=== PATIENT | male | born 1960 | race African-American/Black ===

== ENCOUNTER 2022-08-15 10:40 | Inpatient (IN) | payer MEDICARE, MEDICAID ==
[~2022-08-15] VITALS: Ht 175.3 cm; Wt 49.0 kg
[2022-08-15] MEDS ORDERED: SODIUM CHLORIDE 0.9% 1,000 ML IV ONE (11:15)
[2022-08-15 13:12] LABS: BASOPHILS % 0.8 % (0.0-2.0); EOSINOPHILS % 4.8 % (0.0-5.0); HEMATOCRIT. 30.6 % (42.0-52.0); HEMOGLOBIN. 10.2 g/dL (14.0-18.0); LYMPHOCYTES % 26.9 % (20.0-50.0); MEAN CORPUSCULAR HEMOGLOBIN 29.6 pg (28.0-32.0); MEAN CORPUSCULAR VOLUME 88.6 fL (80.0-94.0); MEAN PLATELET VOLUME 8.8 fl (7.4-10.4); MONOCYTES % 12.6 % (2.0-8.0); NEUTROPHILS % 54.9 % (40.0-76.0); PLATELET 181 x1000/uL (130-400); RED BLOOD CELL COUNT 3.46 mill/uL (4.7-6.1); RED CELL DISTRIBUTION WIDTH 17.8 % (11.6-14.6)
[2022-08-15 13:21] LABS: CHLORIDE 102 mEq/L (98-107); INR 1.3; PROTHROMBIN TIME 13.5 sec (9.6-11.0)
[2022-08-15] MEDS ORDERED: PIPERACILLIN/TAZ 3.375G PREMIX 50 ML IV SCH (14:00)
[2022-08-15] MEDS ORDERED: POTASSIUM CHLORIDE 20MEQ TABLET SR PO SCH (14:00)
[2022-08-15] MEDS ORDERED: SODIUM CHLORIDE 0.9% 1000ML BAG (SEPSIS BOLUS) IV SCH (14:00)
[2022-08-15] MEDS ORDERED: ENOXAPARIN 40MG/0.4ML SYR SUBCUT ONE (17:15)
[2022-08-15] MEDS ORDERED: FUROSEMIDE 40MG/4ML VIAL IVP NR ×2 (17:15→22:30)
[2022-08-15] MEDS ORDERED: GUAIFENESIN 200MG/10ML SUGAR FREE UDC PO PRN ×2 (17:15→22:30)
[2022-08-15] MEDS ORDERED: CEFTRIAXONE 1 G PREMIX 50 ML IV SCH (17:15)
[2022-08-15] MEDS ORDERED: IPRATROPIUM/ALBUTEROL 0.5-3(2.5)MG/3ML NEB HHN PRN (17:15)
[2022-08-15] MEDS ORDERED: ACETAMINOPHEN 325MG TABLET PO PRN ×3 (17:15→22:30)
[2022-08-15] MEDS ORDERED: KCL 10MEQ/50ML PREMIX 50 ML IV NR (18:00)
[2022-08-15] MEDS ORDERED: ENOXAPARIN 30MG/0.3ML SYR SUBCUT SCH (18:00)
[2022-08-15] MEDS ORDERED: POTASSIUM CHLORIDE 20MEQ TABLET SR PO NR ×2 (18:00→22:30)
[2022-08-15] MEDS ORDERED: PANTOPRAZOLE 40MG DR TABLET PO SCH (18:00)
[2022-08-15 21:35] LABS: ETHANOL BLOOD < 10 mg/dL; TOTAL IRON BINDING CAPACITY 125 ug/dL (250-450)
[2022-08-15 21:55] LABS: HEPATITIS B SURFACE ANTIGEN NEGATIVE
[2022-08-15 21:59] LABS: VITAMIN B12 SERUM 1447 pg/mL (211-911)
[2022-08-15 22:15] LABS: FERRITIN 733 ng/mL (22-322)
[2022-08-15] MEDS ORDERED: CEFTRIAXONE 1 G PREMIX 50 ML IV NR (22:30)
[2022-08-15] MEDS ORDERED: PIPERACILLIN/TAZ 3.375G PREMIX 50 ML IV NR (22:30)
[2022-08-16] VITALS: BP 130/90
[2022-08-16 00:09] LABS: CLARITY URINE CLEAR (CLEAR); COLOR URINE YELLOW (YELLOW); KETONES URINE NEGATIVE (NEGATIVE); LEUKOCYTE ESTERASE URINE 1+ (NEGATIVE); NITRITE URINE NEGATIVE (NEGATIVE); OCCULT BLOOD URINE NEGATIVE (NEGATIVE); PROTEIN URINE NEGATIVE (NEGATIVE); SPECIFIC GRAVITY URINE 1.012 (1.005-1.030); UROBILINOGEN URINE 0.2 E.U./dL (0.2-1.0)
[2022-08-16] MEDS ORDERED: ALBUTEROL (0.083%) 2.5MG/3ML NEB HHN PRN (00:30)
[2022-08-16] MEDS ORDERED: IPRATROPIUM BROMIDE (0.02%) 0.5MG/2.5ML NEB HHN PRN (00:30)
[2022-08-16 00:43] LABS: *AMPHETAMINES SCREEN URINE NEGATIVE (NEGATIVE); *BARBITURATES SCREEN URINE NEGATIVE (NEGATIVE); *BENZODIAZEPINES SCREEN URINE NEGATIVE (NEGATIVE); *COCAINE SCREEN URINE NEGATIVE (NEGATIVE); CANNABINOID URINE SCREEN PRESUMTIVE POSITIVE (NEGATIVE); METHADONE URINE SCREEN NEGATIVE (NEGATIVE); OPIATES URINE SCREEN NEGATIVE (NEGATIVE); PHENCYCLIDINE URINE SCREEN NEGATIVE (NEGATIVE)
[2022-08-16 04:00] VITALS: BP 102/67
[2022-08-16 05:45] LABS: BASOPHILS % 0.6 % (0.0-2.0); EOSINOPHILS % 4.5 % (0.0-5.0); HEMATOCRIT. 28.6 % (42.0-52.0); HEMOGLOBIN. 9.7 g/dL (14.0-18.0); LYMPHOCYTES % 19.1 % (20.0-50.0); MEAN CORPUSCULAR HEMOGLOBIN 29.8 pg (28.0-32.0); MEAN CORPUSCULAR VOLUME 88.4 fL (80.0-94.0); MEAN PLATELET VOLUME 9.5 fl (7.4-10.4); MONOCYTES % 13.9 % (2.0-8.0); NEUTROPHILS % 61.9 % (40.0-76.0); PLATELET 163 x1000/uL (130-400); RED BLOOD CELL COUNT 3.23 mill/uL (4.7-6.1); RED CELL DISTRIBUTION WIDTH 17.6 % (11.6-14.6)
[2022-08-16 05:57] LABS: D-DIMER 19.74 mg/L FEU (<0.50); PARTIAL THROMBOPLASTIN TIME 33.7 sec (23.4-31.0)
[2022-08-16 07:39] LABS: CHLORIDE 108 mEq/L (98-107)
[2022-08-16 07:54] LABS: CREATINE KINASE 50 IU/L (39-308); HDL CHOLESTEROL 25 mg/dL (40-59); LDL CHOLESTEROL 119 mg/dL (5-100); PHOSPHORUS 3.7 mg/dL (2.5-4.9); T4 FREE 1.16 ng/dL (0.76-1.46)
[2022-08-16 08:00] VITALS: BP 117/78
[2022-08-16] MEDS ORDERED: POTASSIUM CHLORIDE 20MEQ TABLET SR PO NR (08:15)
[2022-08-16] MEDS: ENOXAPARIN 30MG/0.3ML SYR SUBCUT SCH (08:53)
[2022-08-16] MEDS: PANTOPRAZOLE 40MG DR TABLET PO SCH (08:53)
[2022-08-16] MEDS ORDERED: MAGNESIUM 2 G PREMIX 50 ML IV NR (09:30)
[2022-08-16] MEDS ORDERED: IOHEXOL-350 100 ML BOTTLE ONE (09:45)
[2022-08-16 12:00] VITALS: BP 131/87
[2022-08-16] MEDS ORDERED: CEFTRIAXONE 1,000 MG in DEXTROSE 5% WATER 50 ML IV SCH (14:00)
[2022-08-16] MEDS ORDERED: ALBUMIN HUMAN 25GM/100ML (25%) IV SCH (15:00)
[2022-08-16 16:00] VITALS: BP 123/80
[2022-08-16] MEDS ORDERED: LACTULOSE 20G/30ML UDC PO NR (16:00)
[2022-08-16] MEDS: FUROSEMIDE 40MG TABLET PO SCH (17:07)
[2022-08-16 20:00] VITALS: BP 102/65
[2022-08-16] MEDS: ACETAMINOPHEN 325MG TABLET PO PRN (22:02)
[2022-08-16] MEDS: CEFTRIAXONE 1,000 MG in DEXTROSE 5% WATER 50 ML IV SCH (22:02)
[2022-08-17] VITALS: BP 97/55
[2022-08-17 04:00] VITALS: BP 101/65
[2022-08-17] MEDS: PANTOPRAZOLE 40MG DR TABLET PO SCH (05:58)
[2022-08-17 06:37] LABS: CHLORIDE 108 mEq/L (98-107)
[2022-08-17 06:43] LABS: HEMATOCRIT. 24.5 % (42.0-52.0); HEMOGLOBIN. 8.5 g/dL (14.0-18.0); MEAN CORPUSCULAR HEMOGLOBIN 30.3 pg (28.0-32.0); MEAN CORPUSCULAR VOLUME 87.3 fL (80.0-94.0); MEAN PLATELET VOLUME 9.6 fl (7.4-10.4); PLATELET 140 x1000/uL (130-400)
[2022-08-17 06:46] LABS: PHOSPHORUS 3.6 mg/dL (2.5-4.9)
[2022-08-17 08:00] VITALS: BP 96/60
[2022-08-17] MEDS: LACTULOSE 20G/30ML UDC PO SCH (08:13)
[2022-08-17] MEDS: SPIRONOLACTONE 50MG TABLET PO SCH (08:14)
[2022-08-17] MEDS: FUROSEMIDE 40MG TABLET PO SCH (08:14)
[2022-08-17] MEDS: ENOXAPARIN 30MG/0.3ML SYR SUBCUT SCH (08:14)
[2022-08-17] MEDS ORDERED: POTASSIUM CHLORIDE 20MEQ TABLET SR PO NR (10:15)
[2022-08-17] MEDS: ACETAMINOPHEN 325MG TABLET PO PRN (10:53)
[2022-08-17 10:57] LABS: NUCLEATED RED BLOOD CELLS 1 /100 WBC; PLATELET ESTIMATE NORMAL
[2022-08-17 12:56] VITALS: BP 102/71
[2022-08-17] MEDS ORDERED: ALBUMIN HUMAN 25GM/100ML (25%) IV NR (14:00)
[2022-08-17 16:22] VITALS: BP 90/57
[2022-08-17 20:00] VITALS: BP 96/68
[2022-08-17] MEDS: CEFTRIAXONE 1,000 MG in DEXTROSE 5% WATER 50 ML IV SCH (21:45)
[2022-08-18] VITALS: BP 114/76
[2022-08-18 04:00] VITALS: BP 104/71
[2022-08-18 06:16] LABS: HEMATOCRIT. 23.9 % (42.0-52.0); HEMOGLOBIN. 8.2 g/dL (14.0-18.0); MEAN CORPUSCULAR HEMOGLOBIN 29.9 pg (28.0-32.0); MEAN PLATELET VOLUME 9.2 fl (7.4-10.4); PLATELET 146 x1000/uL (130-400); RED BLOOD CELL COUNT 2.75 mill/uL (4.7-6.1); RED CELL DISTRIBUTION WIDTH 16.7 % (11.6-14.6)
[2022-08-18 06:43] LABS: INR 1.5; PROTHROMBIN TIME 15.4 sec (9.6-11.0)
[2022-08-18 06:45] LABS: CHLORIDE 104 mEq/L (98-107)
[2022-08-18 08:23] VITALS: BP 82/52
[2022-08-18] MEDS ORDERED: LIDOCAINE HCL 1% 10 MG/ML 10ML VIAL ONE (08:35)
[2022-08-18] MEDS ORDERED: SODIUM BICARBONATE 4% (2.4MEQ) 5ML VIAL IV ONE (08:35)
[2022-08-18] MEDS ORDERED: FUROSEMIDE 20MG TABLET PO SCH (09:00)
[2022-08-18 09:41] LABS: PLATELET ESTIMATE NORMAL
[2022-08-18] MEDS ORDERED: POTASSIUM CHLORIDE 20MEQ TABLET SR PO NR (09:45)
[2022-08-18 09:46] VITALS: BP 109/73
[2022-08-18] MEDS: PANTOPRAZOLE 40MG DR TABLET PO SCH (09:47)
[2022-08-18] MEDS: LACTULOSE 20G/30ML UDC PO SCH (09:47)
[2022-08-18] MEDS: SPIRONOLACTONE 50MG TABLET PO SCH (09:47)
[2022-08-18 12:19] VITALS: BP 115/65
[2022-08-18 12:48] LABS: HEMATOCRIT 27.2 % (42.0-52.0); MEAN CORPUSCULAR HEMOGLOBIN 29.7 pg (28.0-32.0); MEAN CORPUSCULAR VOLUME 89.2 fL (80.0-94.0); PLATELET 155 x1000/uL (130-400); RED BLOOD CELL COUNT 3.05 mill/uL (4.7-6.1); RED CELL DISTRIBUTION WIDTH 17.2 % (11.6-14.6)
[2022-08-18] MEDS ORDERED: ALD50 PO (13:45)
[2022-08-18] MEDS ORDERED: ASPI-1497 MT (13:45)
[2022-08-18] MEDS ORDERED: FURO20TA4 PO (13:45)
[2022-08-18] MEDS ORDERED: ATOR20TA MT (13:45)
[2022-08-18 13:50] VITALS: BP 115/65
== END 2022-08-18 16:25 | disposition home or self-care (01) | DRG 432 ==
LOC: ER 10:40 → EDBEDREQTM 14:04 → EDBEDREQ 14:04 → MICUSO 15:52 → EDBEDREQTM 16:07 → EDBEDREQ 16:07 → 7WST 08-16 00:25
PROVIDERS: ADMIT Internal Medicine; ATTEND Internal Medicine
PROC: 0W9G3ZZ Drainage of Peritoneal Cavity, Percutaneous Approach (ICD-10-PCS; principal; 2022-08-18)
DX: K70.11 Alcoholic hepatitis with ascites (principal); E41 Nutritional marasmus; J18.9 Pneumonia, unspecified organism; K76.6 Portal hypertension; E87.20 Acidosis, unspecified; K86.1 Other chronic pancreatitis; Z68.1 Body mass index [BMI] 19.9 or less, adult; B17.9 Acute viral hepatitis, unspecified; J98.11 Atelectasis; E44.0 Moderate protein-calorie malnutrition; Z20.822 Contact with and (suspected) exposure to COVID-19; K72.10 Chronic hepatic failure without coma; D64.9 Anemia, unspecified; E87.6 Hypokalemia; H54.61 Unqualified visual loss, right eye, normal vision left eye; Z86.73 Personal history of transient ischemic attack (TIA), and cerebral infarction without residual deficits; Z79.899 Other long term (current) drug therapy
CPT/HCPCS: 36415; 49083; 71045; 71275; 74176; 76700; 80048; 80053; 80061; 80076; 80305; 80320; 81003; 82040; 82105; 82140; 82150; 82550; 82607; 82728; 82746; 83036; 83540; 83550; 83605; 83615; 83735; 83880; 84100; 84145; 84425; 84439; 84443; 84484; 85025; 85027; 85379; 86705; 86709; 86803; 86850; 86900; 87340; 87426; 88108; 93005; 93306; 93880; 93970; 97162; 97166; 97530; 99291; C1893; J0696; J1650; J1940; J2543; J3475; J3480; J3490; J7030; J7060; P9047; Q9967; G0480

== ENCOUNTER 2022-09-26 13:50 | Emergency (ER) | payer MEDICARE, MEDICAID ==
[~2022-09-26] VITALS: Ht 167.6 cm; Wt 59.0 kg
[~2022-09-26 13:50] MED LIST: ALD50 PO; ASPI-1497 MT; ATOR20TA MT; FURO20TA4 PO
[2022-09-26 13:52] VITALS: BP 91/57
== END 2022-09-26 18:43 | disposition home or self-care (01) ==
LOC: ER 13:50
DX: K70.31 Alcoholic cirrhosis of liver with ascites (principal); Z86.73 Personal history of transient ischemic attack (TIA), and cerebral infarction without residual deficits; I10 Essential (primary) hypertension; K86.1 Other chronic pancreatitis; F17.210 Nicotine dependence, cigarettes, uncomplicated; Z71.6 Tobacco abuse counseling
CPT/HCPCS: 99281; 99406